=== PATIENT | male | born 1955 | race Two or more races ===

== ENCOUNTER 2024-12-17 05:22 | Day surgery (SDC) | payer OTHER ==
[2024-12-11 11:19] LABS: BASO % 0.6 % (0.1-1.2); EOS # 0.16 (0.04-0.54); EOS % 2.3 % (0.7-7.0); LYMPH # 1.42 (1.18-3.74); LYMPH % 20.5 % (19.3-53.1); MEAN PLATELET VOLUME 9.70 fl (9.4-12.4); MONO # 0.49 (0.24-0.82); MONO % 7.1 % (4.7-12.5); NEUT # 4.79 (1.56-6.13); NEUT % 69.4 % (34.0-71.1); RED CELL DISTRIBUTION WIDTH 12.3 % (11.6-14.4)
[2024-12-11 11:28] VITALS: BP 121/70
[2024-12-11 11:28] LABS: URINE APPEARANCE Clear; URINE BILIRRUBIN Negative (NEGATIVE); URINE BLOOD Negative; URINE COLOR Yellow; URINE GLUCOSE Negative (NEGATIVE); URINE KETONE Negative (NEGATIVE); URINE LEUKOCYTE Moderate; URINE NITRATE Negative; URINE PROTEIN Negative (NEGATIVE); URINE UROBILINOGEN 0.2 E.U./dl
[2024-12-11 11:31] LABS: URINE BACTERIA 32.3 uL (0.0-1933); URINE CAST 2.49 uL (0.0-1.40); URINE EPITHELIAL CELLS 7.8 uL (0.0-38.8); URINE RBC 7.4 uL (0.0-20.8); URINE WBC 24.3 uL (0.0-23.2)
[2024-12-11 11:55] LABS: INR 0.99
[2024-12-11 12:19] LABS: ALT/SGPT 27.0 U/L (12-78); AST/SGOT 13.0 U/L (15-37); BILIRUBIN TOTAL 0.59 mg/dL (0.3-1.2); BUN CREA RATIO 20.0 (7.0-25.0); CREATININE SERUM 1.07 mg/dL (0.70-1.30); GFR 68.52; GLOBULINA 2.9 G/DL (2.4-3.5); GLUCOSE FASTING 100.0 mg/dL (65-100); OSMOLALITY SERUM 290.0 MOSM/KG (275-295)
[~2024-12-17] VITALS: Ht 188 cm; Wt 77.1 kg
[~2024-12-17 05:22] MED LIST: AMLODIPINE-BEN1 EAC5 PO; FENOFIBRIC ACI105 MG PO; OMEGA-31000 MG PO; ROSUVASTATIN CA10 MG PO
[2024-12-17] MEDS ORDERED: CEFAZOLIN SODIUM 1,000 MG VIAL IV ONE (07:45)
[2024-12-17] MEDS ORDERED: MORPHINE SULFATE 4 MG/ML VIAL IV ONE ×2 (09:25→10:35)
[2024-12-17] MEDS ORDERED: SUGAMMADEX SODIUM 200 MG/2 ML VIAL IV ONE (10:15)
== END 2024-12-17 11:25 | disposition home or self-care (01) ==
LOC: CIR.AMB 05:22
PROVIDERS: ATTEND Surgery
DX: K40.91 Unilateral inguinal hernia, without obstruction or gangrene, recurrent (principal)
CPT/HCPCS: 49651; C1781